=== PATIENT | male | born 1990 | race Caucasian/White ===

== ENCOUNTER 2024-07-19 16:19 | Inpatient (IN) | payer MEDICAID ==
[2024-07-19 16:45] LABS: BASOPHILS ABSOLUTE AUTO 0.1 K/mm3 (0.0-0.2); BASOPHILS PERCENT AUTO 0.9 % (0.0-1.0); EOSINOPHILS ABSOLUTE AUTO 0.1 K/mm3 (0.0-0.4); HEMATOCRIT 45.8 % (42.0-52.0); HEMOGLOBIN 16.3 gm/dl (14.0-18.0); IMMATURE GRAN ABSOLUTE AUTO 0.03 K/mm3 (0.00-0.05); IMMATURE GRAN PERCENT AUTO 0.4 % (0.0-0.4); LYMPHOCYTES ABSOLUTE AUTO 1.2 K/mm3 (1.0-4.8); MEAN CORPUSCULAR HEMOGLOBIN 35.1 pg (28.0-32.0); MEAN CORPUSCULAR HGB CONC 35.6 g/dl (32.0-36.0); MEAN CORPUSCULAR VOLUME 98.7 fl (83.0-99.0); MEAN PLATELET VOLUME 9.8 fl (9.4-12.4); MONOCYTES PERCENT AUTO 12.5 % (0.0-8.0); NEUTROPHILS ABSOLUTE AUTO 5.3 K/mm3 (1.8-7.7); NEUTROPHILS PERCENT AUTO 69.2 % (41.0-71.0); PLATELET COUNT,PLT 129 K/mm3 (150-400); RED BLOOD CELL COUNT 4.64 M/mm3 (4.52-5.90); WHITE BLOOD CELL COUNT,WBC 7.69 K/mm3 (3.9-11.3)
[2024-07-19] MEDS: Sodium Chloride 0.9% 1,000 ML IV STA ×2 (16:46→18:02)
[2024-07-19] MEDS: Ondansetron 4 MG/2 ML SDV IVPUSH ONE (16:46)
[2024-07-19] MEDS: LORazepam 2 MG/ML SDV IVPUSH ONE (16:46)
[2024-07-19 17:11] LABS: A/G RATIO 1.4 (1-2); ALANINE AMINOTRANSFERASE,ALT 208 U/L (16-63); ALKALINE PHOSPHATASE 111 U/L (46-116); ASPARTATE AMNIOTRANSFERASE,AST 156 U/L (15-37); BILIRUBIN TOTAL 1.8 mg/dL (0.2-1.0); BLOOD UREA NITROGEN,BUN 22 mg/dL (7-18); BUN/CREATININE RATIO 15.7 (14-18); CALCIUM 10.5 mg/dL (8.5-10.1); CARBON DIOXIDE,CO2 17 mEq/L (21-32); CHLORIDE,CL 89 mEq/L (98-107); CREATININE 1.4 mg/dL (0.7-1.3); EST CRCL DRUG DOSING (CG) 73.71 mL/min; ESTIMATED GFR 67 mL/min (>60); GLUCOSE RANDOM 222 mg/dL (70-99); PROTEIN TOTAL,TP 8.7 g/dl (6.4-8.2); SODIUM,NA 131 mEq/L (136-145)
[2024-07-19 17:12] LABS: TROPONIN I HIGH SENSITIVITY < 4 pg/mL (<=76)
[2024-07-19] MEDS: Potassium Chloride 20 MEQ Tab.ER PO ONE (17:38)
[2024-07-19] MEDS: Thiamine 100 MG Tab PO ONE (17:38)
[2024-07-19] MEDS: Folic Acid 1 MG Tab PO ONE (17:38)
[2024-07-19 18:16] LABS: HEMOGLOBIN A1C 5.1 %
[2024-07-19] MEDS ORDERED: LORazepam 1 MG Tab PO PRN (18:54)
[2024-07-19] MEDS ORDERED: oxyCODONE 5 MG Tab PO PRN (18:56)
[2024-07-19] MEDS ORDERED: Acetaminophen 325 MG Tab PO PRN (18:56)
[2024-07-19] MEDS ORDERED: Ondansetron 4 MG Tab.DIS PO PRN (18:56)
[2024-07-19] MEDS ORDERED: Melatonin 3 MG Tab PO PRN (18:56)
[2024-07-19] MEDS ORDERED: Morphine 2 MG/ML SYRINGE IVPUSH PRN (18:56)
[2024-07-19] MEDS ORDERED: Naloxone 0.4 MG/ML SDV IVPUSH PRN (18:56)
[2024-07-19] MEDS ORDERED: Sennosides/Docusate Sodium 50-8.6 MG Tab PO PRN (18:56)
[2024-07-19] MEDS ORDERED: Labetalol 100 MG/20 ML MDV IVPUSH PRN (18:58)
[2024-07-19] MEDS ORDERED: hydrALAZINE 20 MG/ML SDV IVPUSH PRN (18:58)
[2024-07-19] MEDS ORDERED: 50% Dextrose in Water 50 ML Syringe IVPUSH PRN (19:00)
[2024-07-19] MEDS: Iopamidol 612 MG/ML 100 ML Bottle IVPUSH ONE (19:20)
[2024-07-19] MEDS: Thiamine 100 MG Tab PO SCH (20:15)
[2024-07-19] MEDS: Folic Acid 1 MG Tab PO SCH (20:15)
[2024-07-19] MEDS: NS with KCl 40mEq 1,000 ML IV SCH (20:15)
[2024-07-19] MEDS: LORazepam 2 MG/ML SDV IVPUSH PRN (20:21)
[2024-07-19] MEDS: Ondansetron 4 MG/2 ML SDV IV PRN (20:23)
[2024-07-19 20:58] LABS: LACTIC ACID 1.5 mmol/L (0.4-2.0)
[2024-07-19] MEDS: Insulin Lispro 100 Unit/ML 3 ML KwikPen SUBCUT SCH (22:17)
[2024-07-20 04:32] LABS: BASOPHILS ABSOLUTE AUTO 0.1 K/mm3 (0.0-0.2); BASOPHILS PERCENT AUTO 0.8 % (0.0-1.0); EOSINOPHILS ABSOLUTE AUTO 0.2 K/mm3 (0.0-0.4); EOSINOPHILS PERCENT AUTO 2.7 % (0.0-6.0); HEMATOCRIT 37.4 % (42.0-52.0); HEMOGLOBIN 13.5 gm/dl (14.0-18.0); IMMATURE GRAN ABSOLUTE AUTO 0.02 K/mm3 (0.00-0.05); IMMATURE GRAN PERCENT AUTO 0.2 % (0.0-0.4); LYMPHOCYTES ABSOLUTE AUTO 1.4 K/mm3 (1.0-4.8); LYMPHOCYTES PERCENT AUTO 16.2 % (24.0-44.0); MEAN CORPUSCULAR HEMOGLOBIN 35.5 pg (28.0-32.0); MEAN CORPUSCULAR HGB CONC 36.1 g/dl (32.0-36.0); MEAN CORPUSCULAR VOLUME 98.4 fl (83.0-99.0); MEAN PLATELET VOLUME 9.8 fl (9.4-12.4); MONOCYTES ABSOLUTE AUTO 1.2 K/mm3 (0.0-0.8); NEUTROPHILS ABSOLUTE AUTO 5.7 K/mm3 (1.8-7.7); NEUTROPHILS PERCENT AUTO 66.1 % (41.0-71.0); PLATELET COUNT,PLT 105 K/mm3 (150-400); WHITE BLOOD CELL COUNT,WBC 8.63 K/mm3 (3.9-11.3)
[2024-07-20 05:00] LABS: A/G RATIO 1.3 (1-2); ALBUMIN 3.9 g/dl (3.4-5.0); ANION GAP 16.4 (5-15); BILIRUBIN TOTAL 1.3 mg/dL (0.2-1.0); BUN/CREATININE RATIO 25.7 (14-18); CALCIUM 9.5 mg/dL (8.5-10.1); CREATININE 0.7 mg/dL (0.7-1.3); EST CRCL DRUG DOSING (CG) 136.17 mL/min; MAGNESIUM 1.9 mg/dL (1.8-2.4); PHOSPHORUS 2.8 mg/dL (2.6-4.7); POTASSIUM,K 3.4 mEq/L (3.5-5.1); PROTEIN TOTAL,TP 6.8 g/dl (6.4-8.2)
[2024-07-20 05:58] LABS: FOLIC ACID 27.6 ng/mL (8.6-58.9)
[2024-07-20] MEDS: Potassium Chloride 20 MEQ Tab.ER PO ONE (08:44)
[2024-07-20] MEDS: Enoxaparin 40 MG/0.4 ML Syringe SUBCUT SCH (08:47)
[2024-07-20] MEDS: Magnesium Sulfat/D5W 1GM/100ML 1 GM in Premix Bag 1 BAG IV ONE (08:48)
[2024-07-20] MEDS ORDERED: Cyanocobalamin (Vitamin B12) 1,000 MCG Tab PO SCH (09:00)
[2024-07-20] MEDS: Sodium Phosphate 30 MMOLE in Sodium Chloride 0.9% 250 ML IV ONE (09:49)
[2024-07-20 10:06] LABS: BARBITURATE SCREEN,URINE NEGATIVE (CUTOFF=200); BENZODIAZEPINES SCREEN,URINE PRESUMPTIVE POSITIVE (CUTOFF=150); BUPRENORPHINE SCREEN,URINE NEGATIVE (CUTOFF=10); METHADONE SCREEN, URINE NEGATIVE (CUT0FF=200); METHAMPHETAMINES SCREEN, URINE NEGATIVE (CUTOFF=500); OXYCODONE SCREEN,URINE NEGATIVE (CUT0FF=100); THC SCREEN,URINE 20 NG/ML NEGATIVE (CUTOFF=50)
[2024-07-20 10:07] LABS: AMPHETAMINES SCREEN, URINE NEGATIVE (CUTOFF=500)
[2024-07-20] MEDS ORDERED: Potassium Chloride 20 MEQ Tab.ER PO ONE (12:00)
[2024-07-20] MEDS: Loperamide 2 MG Cap PO ONE (12:19)
[2024-07-20] MEDS: Gadobenate Dimeglumine 529 MG/ML 15 ML SDV IVPUSH ONE (13:52)
[2024-07-20] MEDS: Sodium Chloride 0.9% 10 ML Syringe FLUSH SCH (13:53)
[2024-07-20] MEDS: Lactated Ringers 1,000 ML IV SCH (16:48)
[2024-07-20] MEDS: Loperamide 2 MG Cap PO PRN (16:56)
[2024-07-21 05:34] LABS: BASOPHILS ABSOLUTE AUTO 0.1 K/mm3 (0.0-0.2); BASOPHILS PERCENT AUTO 1.1 % (0.0-1.0); EOSINOPHILS ABSOLUTE AUTO 0.4 K/mm3 (0.0-0.4); EOSINOPHILS PERCENT AUTO 4.4 % (0.0-6.0); HEMATOCRIT 36.8 % (42.0-52.0); HEMOGLOBIN 12.9 gm/dl (14.0-18.0); IMMATURE GRAN ABSOLUTE AUTO 0.03 K/mm3 (0.00-0.05); IMMATURE GRAN PERCENT AUTO 0.4 % (0.0-0.4); LYMPHOCYTES ABSOLUTE AUTO 1.6 K/mm3 (1.0-4.8); LYMPHOCYTES PERCENT AUTO 19.7 % (24.0-44.0); MEAN CORPUSCULAR HEMOGLOBIN 35.1 pg (28.0-32.0); MEAN CORPUSCULAR HGB CONC 35.1 g/dl (32.0-36.0); MEAN PLATELET VOLUME 9.5 fl (9.4-12.4); MONOCYTES ABSOLUTE AUTO 1.1 K/mm3 (0.0-0.8); MONOCYTES PERCENT AUTO 13.3 % (0.0-8.0); NEUTROPHILS ABSOLUTE AUTO 5.1 K/mm3 (1.8-7.7); NEUTROPHILS PERCENT AUTO 61.1 % (41.0-71.0); PLATELET COUNT,PLT 106 K/mm3 (150-400); RED BLOOD CELL COUNT 3.68 M/mm3 (4.52-5.90); WHITE BLOOD CELL COUNT,WBC 8.27 K/mm3 (3.9-11.3)
[2024-07-21 06:01] LABS: A/G RATIO 1.2 (1-2); ALBUMIN 3.9 g/dl (3.4-5.0); ANION GAP 15.1 (5-15); BILIRUBIN TOTAL 1.1 mg/dL (0.2-1.0); CALCIUM 9.8 mg/dL (8.5-10.1); CREATININE 0.7 mg/dL (0.7-1.3); EST CRCL DRUG DOSING (CG) 138.16 mL/min; MAGNESIUM 1.9 mg/dL (1.8-2.4); PHOSPHORUS 3.5 mg/dL (2.6-4.7); POTASSIUM,K 4.1 mEq/L (3.5-5.1); PROTEIN TOTAL,TP 7.1 g/dl (6.4-8.2)
[2024-07-22 12:47] LABS: VITAMIN B1, WHOLE BLOOD 156 nmol/L (70-180)
== END 2024-07-21 11:05 | disposition home or self-care (01) | DRG 896 ==
LOC: JD.ED 16:19 → JD.ICU 18:56
PROVIDERS: ADMIT Student in an Organized Health Care Education/Training Program; ATTEND Student in an Organized Health Care Education/Training Program
DX: F10.139 Alcohol abuse with withdrawal, unspecified (principal); K85.90 Acute pancreatitis without necrosis or infection, unspecified; S06.6X0A Traumatic subarachnoid hemorrhage without loss of consciousness, initial encounter; G40.89 Other seizures; E87.29 Other acidosis; R40.2362 Coma scale, best motor response, obeys commands, at arrival to emergency department; R40.2252 Coma scale, best verbal response, oriented, at arrival to emergency department; R40.2142 Coma scale, eyes open, spontaneous, at arrival to emergency department; H54.7 Unspecified visual loss; F17.210 Nicotine dependence, cigarettes, uncomplicated; E87.6 Hypokalemia; E86.0 Dehydration; E80.6 Other disorders of bilirubin metabolism; R74.01 Elevation of levels of liver transaminase levels; K70.0 Alcoholic fatty liver; D69.59 Other secondary thrombocytopenia; S00.03XA Contusion of scalp, initial encounter; I10 Essential (primary) hypertension; R73.9 Hyperglycemia, unspecified; D69.6 Thrombocytopenia, unspecified; R19.7 Diarrhea, unspecified; W01.198A Fall on same level from slipping, tripping and stumbling with subsequent striking against other object, initial encounter; Y92.89 Other specified places as the place of occurrence of the external cause
CPT/HCPCS: 36415; 70450; 70450-26; 70553; 70553-26; 74177; 74177-26; 80053; 80306; 80307; 82010; 82607; 82746; 82947; 83036; 83605; 83690; 83735; 84100; 84425; 84484; 85025; 93005; 93010; 96361; 96374; 96375; 97116-GP; 97161-GP; 97530-GP; 99223; 99239; 99284; 99285-25; A9270-GY; A9577; J1650; J2060; J2405; J3475; J3480; J3490; J7030; J7050; J7120; Q9967